=== PATIENT | female | born 1980 | race Caucasian/White ===

== ENCOUNTER 2019-09-25 21:54 | Emergency (ER) | payer SELFPAY ==
[2019-09-25 22:11] VITALS: BP 125/69; PULSE 86; TEMP 98.1; BMI 25.7
--- NOTE | 2019-09-25 22:27 | PDOC ---
History of Present Illness - General Chief Complaint: Injury Stated Complaint: INJURY Time Seen by Provider: 09/25/19 22:12 - History of Present Illness Initial Comments: 09/25/19 22:25 39-year-old female without comorbidities presents for evaluation of left foot pain after banging her foot into a metal pipe 2 nights ago. Past History - Past Medical History Allergies/Adverse Reactions: Allergies Allergy/AdvReac Type Severity Reaction Status Date / Time ciprofloxacin [From Cipro] Allergy Swelling Verified 09/25/19 22:11 ciprofloxacin HCl Allergy Swelling Verified 09/25/19 22:11 [From Cipro] oxycodone HCl [From Percocet] Allergy Vomiting Verified 09/25/19 22:11 Home Medications: Ambulatory Orders Glipizide [Glipizide Xl] 5 mg PO BID 01/29/15 metFORMIN HCL [Glucophage -] 500 mg PO BID 01/29/15 Albuterol 0.083% Nebulizer Uyen [Ventolin 0.083% Nebulizer Soln -] 1 neb NEB PRN PRN 01/30/15 Albuterol Sulfate Inhaler - [Ventolin HFA Inhaler -] 1 - 2 inh PO PRN PRN Hydrocodone/Acetaminophen [Lorcet 5-325 mg Tablet] 1 each PO Q6H PRN #60 tablet 01/30/15 Ibuprofen [Motrin -] 800 mg PO TID #60 tablet 01/30/15 Anemia: No Asthma: Yes Cancer: No Cardiac Disorders: No CVA: No COPD: No CHF: No Dementia: No Diabetes: Yes (x3 yrs) GI Disorders: No Disorders: No HTN: No Hypercholesterolemia: No Liver Disease: No Seizures: No Thyroid Disease: No - Surgical History Abdominal Surgery: No Appendectomy: No Cardiac Surgery: No Cholecystectomy: No Lung Surgery: No Neurologic Surgery: No Orthopedic Surgery: No - Psycho Social/Smoking Cessation Hx Smoking History: Current every day smoker Have you smoked in the past 12 months: Yes Number of Cigarettes Smoked Daily: 10 If you are a former smoker, when did you quit?: 4 months Information on smoking cessation initiated: Yes Hx Alcohol Use: No Drug/Substance Use Hx: No Substance Use Type: None Review of Systems - Review of Systems Musculoskeletal: Yes: Joint Pain *Physical Exam - Vital Signs Last Vital Signs Temp Pulse Resp BP Pulse Ox 98.1 F 86 18 125/69 100 09/25/19 22:08 09/25/19 22:08 09/25/19 22:08 09/25/19 22:08 09/25/19 22:08 - Physical Exam 09/25/19 22:26 Left foot skin color and temperature normal range of motion of the ankle is full. There is no tenderness about the knee ankle proximal fibula or along its distal course course. Thigh and calf are soft and nontender neurovascular intact no instability. Mild tenderness about the dorsum of the foot laterally. Neurovascular intact no gross sensorimotor deficits ED Treatment Course - RADIOLOGY Radiology Studies Ordered: Category Date Time Status FOOT-LEFT [RAD] Stat Radiology 09/25/19 22:13 Taken Medical Decision Making - Medical Decision Making 09/25/19 22:26 X-rays of the left foot show no evidence of fracture trauma or destructive process. Left foot contusion follow-up with orthopedics Discharge - Discharge Information Problems reviewed: Yes Clinical Impression/Diagnosis: Contusion of left foot Condition: Stable Disposition: HOME - Admission No - Follow up/Referral Referrals: Nic Black DO [Staff Physician] - - Patient Discharge Instructions Additional Instructions: You may weight-bear as tolerated with crutches. Tylenol and Motrin as directed for pain. Return to the emergency room for worsening symptoms and without fail follow-up with orthopedic surgery in 2 to 3 days for further evaluation and treatment options. - Post Discharge Activity
== END 2019-09-25 23:15 | disposition home or self-care (01) ==
LOC: JERFT 21:54
DX: S90.32XA Contusion of left foot, initial encounter (principal); W22.01XA Walked into wall, initial encounter; Y93.89 Activity, other specified; Y92.89 Other specified places as the place of occurrence of the external cause; Z88.8 Allergy status to other drugs, medicaments and biological substances; Z88.6 Allergy status to analgesic agent; F17.210 Nicotine dependence, cigarettes, uncomplicated
CPT/HCPCS: 73630-TC-LT; 99281-25